=== PATIENT | female | born 1960 | race Caucasian/White ===

== ENCOUNTER 2018-06-09 18:36 | Emergency (ER) | payer MEDICAID, OTHER ==
[2018-06-09 19:00] VITALS: BP 105/68; PULSE 80; RESP 18; TEMP 98.3; O2SAT 98
--- NOTE | 2018-06-09 19:58 | ED PDOC ---
HPI: Abdomen Time Seen by Provider: 06/09/18 19:05 Chief Complaint (Nursing): Abdominal Pain History Per: Patient, Return Clerk (Carl [id number]) Onset/Duration Of Symptoms: Days Outside of [place] travel?: Yes Current Symptoms Are (Timing): Still Present Location Of Pain/Discomfort: Suprapubic Additional Complaint(s): 58 year old F presenting with lower abdominal pain and difficulty urinating x 1 month. States that her urine has been dark and it's difficult for her to pass urine sometimes. States that when she is doing exercise, she feels as though something is "Falling out" of her vagina and is very painful. States she. States that she tried to see a [facility] but it was going to cost her over $200 and could not afford it and came to the ER instead. No nausea, vomiting, diarrhea. Past Medical History Reviewed: Historical Data, Nursing Documentation, Vital Signs Vital Signs: Last Vital Signs Temp 98.3 F 06/09/18 18:58 Pulse 80 06/09/18 18:58 Resp 18 06/09/18 18:58 BP 105/68 06/09/18 18:58 Pulse Ox 98 06/09/18 18:58 - Family History Family History: States: Unknown Family Hx - Home Medications Home Medications: Ambulatory Orders Medication Instructions Recorded Ibuprofen [Motrin Tab] 600 mg PO Q6 #30 tab 06/09/18 - Allergies Allergies/Adverse Reactions: Allergies Allergy/AdvReac Type Severity Reaction Status Date / Time No Known Allergies Allergy Verified 06/09/18 19:01 Review of Systems ROS Statement: Except As Marked, All Systems Reviewed And Found Negative Gastrointestinal: Positive for: Abdominal Pain Genitourinary Female: Positive for: Dysuria, Pelvic Pain Physical Exam - Reviewed Nursing Documentation Reviewed: Yes Vital Signs Reviewed: Yes - Physical Exam Appears: Positive for: Well, Non-toxic, No Acute Distress Head Exam: Positive for: ATRAUMATIC, NORMAL INSPECTION, NORMOCEPHALIC Skin: Positive for: Normal Color, Warm, DRY Eye Exam: Positive for: EOMI, Normal appearance, PERRL ENT: Positive for: Normal ENT Inspection Neck: Positive for: Normal, Painless ROM Cardiovascular/Chest: Positive for: Regular Rate, Rhythm Respiratory: Positive for: CNT, Normal Breath Sounds Gastrointestinal/Abdominal: Positive for: Normal Exam, Soft, Tenderness (TTP in suprapubic area) Pelvic Exam: Positive for: External Exam Normal, No Masses, Other (Redundancy of vaginal tissue; 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 Negative for: Active Bleeding, Tender Adnexa, Tender Uterus Back: Positive for: Normal Inspection Extremity: Positive for: Normal ROM Neurologic/Psych: Positive for: Alert, Oriented - ECG O2 Sat by Pulse Oximetry: 98 Pulse Ox Interpretation: Normal Medical Decision Making Medical Decision Makin58 year old F presenting with pelvic pain and urinary symptoms --Well appearing, normal vitals, comfortable --Possibly UTI, most likely vaginal/uterine prolapse --Explained to patient that regardless of U/S findings, she will need to followup with a [facility] --Pending U/S and UA 1030PM Date of service: 06/09/2018 History Pain. Comparison None available. Technique Pelvic transvaginal ultrasound. Findings Uterus Measures 7.0 x 3.3 x 4.6 cm. Normal in size and appearance. No fibroid or other mass lesion seen. Endometrium Measures 0.4 cm in diameter. Unremarkable. Cervix No cervical abnormality identified. Right ovary Measures 2.2 x 0.9 x 1.6 cm. No solid mass. Normal flow. Left ovary Not seen. Free fluid No significant free fluid noted. Other Findings None. Impression Left ovary is not seen. Otherwise, unremarkable study. 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
[2018-06-09 20:34] LABS: SQUAMOUS EPITHIAL < 1 /hpf (0-5); URINE BILIRUBIN NEGATIVE (NEGATIVE); URINE BLOOD NEGATIVE (NEGATIVE); URINE CLARITY CLEAR (Clear); URINE COLOR YELLOW (YELLOW); URINE GLUCOSE (UA) NEG (NEGATIVE); URINE LEUKOCYTE ESTERASE NEG Leu/uL (Negative); URINE PROTEIN NEGATIVE (NEGATIVE); URINE UROBILINOGEN 0.2-1.0 mg/dL (0.2-1.0)
--- NOTE | 2018-06-10 09:56 | US ---
Date of service: 06/09/2018 HISTORY: possible uterine prolapse, pelvic pain COMPARISON: None available. TECHNIQUE: Grayscale, color Doppler and spectral evaluation the pelvis performed transabdominally and transvaginally FINDINGS: UTERUS: Measures 7.0 x 3.3 x 4.6 cm. Anteverted. Normal in size and appearance. No fibroid or other mass lesion seen. ENDOMETRIUM: Measures 4 mm in diameter. Unremarkable. CERVIX: No cervical abnormality identified. RIGHT OVARY: Measures 2.2 x 0.9 x 1.6 cm. No solid mass. Normal flow. LEFT OVARY: Not visualized. FREE FLUID: No significant free fluid noted. OTHER FINDINGS: None. IMPRESSION: Nonvisualization of the left ovary. Otherwise, unremarkable pelvic ultrasound.
== END 2018-06-09 22:30 | disposition home or self-care (01) ==
LOC: H.ER 18:36
DX: R10.2 Pelvic and perineal pain (principal)